=== PATIENT | female | born 1930 | race Caucasian/White ===

== ENCOUNTER 2016-10-28 15:52 | Emergency (ER) | payer OTHER ==
[~2016-10-28] VITALS: Ht 157.5 cm; Wt 88.5 kg
[2016-10-28 15:57] VITALS: BP 156/85
[2016-10-28] MEDS ORDERED: COLCRYS0.6 M1 PO (17:22)
[2016-10-28] MEDS ORDERED: AMLODIPINE BESY10 M1 PO (17:22)
[2016-10-28] MEDS ORDERED: CARVEDILOL12.5 M1 PO (17:22)
--- NOTE | 2016-10-28 17:22 | ED UPPER/LOWER EXTREMITY COMPL ---
History of Present Illness General Chief Complaint: Hip Injury Stated Complaint: LT HIP PAIN Source: patient, family, old records Exam Limitations: no limitations Vital Signs & Intake/Output Vital Signs & Intake/Output Vital Signs Date Time Temp Pulse Resp B/P Pulse O2 O2 Flow FiO2 Ox Delivery Rate 10/28 1557 97.6 92 16 156/85 95 Room Air Allergies Coded Allergies: Penicillins (RASH 10/28/16) tuberculin, purified protein deriva (RASH, SORE 10/28/16) Reconcile Medications Amlodipine Besylate 10 MG TABLET 1 TAB PO DAILY BP (Reported) Carvedilol 12.5 MG TABLET 1 TAB PO BID HEART/BP (Reported) Cholecalciferol (Vitamin D3) (Vitamin D) 5,000 UNIT TABLET 1 TAB PO DAILY SUPPLEMENT (Reported) Colchicine (Colcrys) 0.6 MG TABLET 1 TAB PO EOD PSUEDOGOUT (Reported) Folic Acid 0.4 MG TABLET 1 TAB PO DAILY SUPPLEMENT (Reported) Furosemide 20 MG TABLET 1 TAB PO QAM DIURETIC (Reported) Hydrocodone/Acetaminophen (Hydrocodon-Acetaminoph 7.5-300) 7.5 MG-300 MG TABLET 1 TAB PO PRN PAIN (Reported) Lorazepam 0.5 MG TABLET 1.5 TAB PO QPM SLEEP (Reported) Pioglitazone HCl 15 MG TABLET 1 TAB PO DAILY DM (Reported) Triage Note: PT HERE WITH LT HIP PAIN THAT STARTED YESTERDAY . PT DENIES ANY INJURIES. PT STATES SHE TOOK HYDROCODONE FOR THE PAIN THAT DR. COLLIER PRESCRIBED. PT HAS HX OF ARTHRITIS AND STATES THAT IS WHY DR. COLLIER PRESCRIBES IT. Triage Nurses Notes Reviewed? yes Onset: yesterday Duration: hour(s):, constant, continues in ED Timing: recent history Severity: mild Pain/Injury Location: Left: Hip. Method of Injury: unknown Modifying Factors: Improves With: immobilization, pain medication, rest. Worsens With: movement. Associated Symptoms: GCS 15 since LMP (ages 10-50): post menopausal : No Patient currently breastfeeds: No HPI: 1 day prior to admission patient stretched to her right developing pop in left hip with subsequent decreased range of motion pain with ambulation improved with rest. She denies fever chills nausea vomiting diarrhea abdominal pain chest pain shortness breath headache dysuria rash bleeding change in bowel bladder. 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 Past History Travel History Traveled to [place] past 21 day No Medical History Any Pertinent Medical History? see below for history EENT: hearing loss Cardiovascular: hypertension Renal: RENAL PROBLEMS Musculoskeletal: osteoarthritis Endocrine: diabetes Surgical History Surgical History: non-contributory Psychosocial History What is your primary language Kinyarwanda Tobacco Use: Quit >30 days ago ETOH Use: denies use Illicit Drug Use: denies illicit drug use Family History Hx Contributory? No Review of Systems Review of Systems Constitutional: Reports: no symptoms. EENTM: Reports: no symptoms. Respiratory: Reports: no symptoms. Cardiovascular: Reports: no symptoms. Gastrointestinal/Abdominal: Reports: no symptoms. Genitourinary: Reports: no symptoms. Musculoskeletal: Reports: see HPI, joint pain. Skin: Reports: no symptoms. Neurological/Psychological: Reports: no symptoms. Hematologic/Endocrine: Reports: no symptoms. Immunological: Reports: no symptoms. All Other Systems: Reviewed and Negative Physical Exam Physical Exam General Appearance: well developed/nourished, alert, awake, anxious, mild distress, obese Head: atraumatic Eyes: Bilateral: PERRL, EOMI. Ears, Nose, Throat: normal pharynx, normal ENT inspection, hearing grossly normal Neck: normal inspection, supple Cardiovascular/Respiratory: regular rate/rhythm Peripheral Pulses: 4+ carotid (R), 4+ carotid (L) Back: normal inspection Shoulder Left: normal range of motion, normal inspection Shoulder Right: normal range of motion, normal inspection Elbow Left: normal range of motion, normal inspection Elbow Right: normal range of motion, normal inspection Hand Left: normal inspection, normal range of motion Hand Right: normal inspection, normal range of motion Upper Extremity Reflexes: 2+: bicep (R), bicep (L). Leg Left: normal range of motion, normal inspection Leg Right: normal range of motion, normal inspection Hip Left: normal inspection, soft tissue tenderness, limited range of motion Hip Right: normal range of motion, normal inspection Knee Left: normal range of motion, normal inspection Knee Right: swelling, soft tissue tenderness, limited range of motion Foot Left: normal inspection, normal range of motion Foot Right: normal inspection, normal range of motion Lower Extremity Reflexes: 2+: knee (R), knee (L). Neurologic/Tendon: normal sensation, normal motor functions, normal tendon functions Skin: intact, normal color, warm/dry Lymphatic: no anterior cervical pan Progress Differential Diagnosis: contusion, fracture, sprain Plan of Care: Orders Procedure Date/time Status XRY-HIP 4 VIEWS UNI, LEFT 10/28 1721 Active Diagnostic Imaging: Viewed by Me: Radiology Read. Discussed w/RAD: Radiology Read. Radiology Impression: No acute fracture or dislocation left hip or the AP pelvis exam. There is moderate lateral acetabular spurring left hip and mild spurring right hip. No bony erosive changes seen. Departure Departure Time of Disposition: 1811 Disposition: HOME OR SELF CARE Condition: Stable Clinical Impression Primary Impression: Strain of left hip Qualifiers: Encounter type: initial encounter Qualified Code: S76.012A - Strain of muscle, fascia and tendon of left hip, initial encounter Referrals: NANDO RICHARDS,ISABELA Mendez (PCP/Family) LAURYN RICHARDS,MARIEL Call for orthopedic follow up Additional Instructions: Continue your pain medication Departure Forms: Customer Survey General Discharge Information
[2016-10-28] MEDS ORDERED: LORAZEPAM0.5 M1 PO (17:23)
[2016-10-28] MEDS ORDERED: FUROSEMIDE20 M1 PO (17:23)
[2016-10-28] MEDS ORDERED: PIOGLITAZONE HC15 MG PO (17:23)
[2016-10-28] MEDS ORDERED: VITAMIN D5000 UNIT PO (17:24)
[2016-10-28] MEDS ORDERED: FOLIC ACID0.4 M1 PO (17:24)
[2016-10-28] MEDS ORDERED: HYDROCODON-ACE1 EAC6 PO (17:24)
--- NOTE | 2016-10-28 18:03 | RADIOLOGY REPORT ---
EXAMINATION: XR HIP, LEFT CLINICAL INFORMATION: Left hip pain after hearing is not. COMPARISON: None TECHNIQUE: AP pelvis and 2 views of the left hip. FINDINGS: Both hip joints are symmetrical. There is moderate lateral acetabular bony spurring left greater than right. The SI joints are symmetrical. No visible fracture seen involving the pelvic bones. AP and frog leg views of left hip reveals moderate lateral acetabular spurring. No visible fracture seen. IMPRESSION: No acute fracture or dislocation left hip or the AP pelvis exam. There is moderate lateral acetabular spurring left hip and mild spurring right hip. No bony erosive changes seen.
== END 2016-10-28 18:22 ==
LOC: ERH 15:52
DX: S76.012A Strain of muscle, fascia and tendon of left hip, initial encounter (principal); X50.9XXA Other and unspecified overexertion or strenuous movements or postures, initial encounter; Y93.89 Activity, other specified; Y92.9 Unspecified place or not applicable
CPT/HCPCS: 73502-LT